=== PATIENT | female | born 1985 | race Caucasian/White ===

== ENCOUNTER 2020-12-28 16:36 | Observation (INO) ==
[2020-12-28] MEDS ORDERED: MAG HYDROX/AL HYDROX/SIMETH 30 ML ORAL.SUSP PO ONE (17:32)
[2020-12-28] MEDS ORDERED: ONDANSETRON 4 MG/2 ML VIAL IV ONE (17:32)
[2020-12-28] MEDS ORDERED: FAMOTIDINE/PF 20 MG/2 ML VIAL IV ONE (17:32)
[2020-12-28] MEDS ORDERED: LACTATED RINGERS 1,000 ML IV ONE (17:33)
[2020-12-28 18:08] LABS: Basophils # (Auto) 0.02 K/mcL (0.00-0.30); Basophils % (Auto) 0.2 % (0.0-2.0); Eosinophils # (Auto) 0.19 K/mcL (0.00-0.70); Eosinophils % (Auto) 1.7 % (0.0-7.0); Hematocrit 42.3 % (34.1-44.9); Hemoglobin 14.9 g/dL (11.2-15.7); Lymphocytes # (Auto) 2.66 K/mcL (1.50-4.80); Lymphocytes % (Auto) 24.3 % (15.5-49.0); Mean Cell Volume 93.2 fL (80.0-100.0); Mean Corpuscular HGB Conc 35.2 g/dL (31.0-36.0); Mean Platelet Volume 9.9 fL (7.4-10.4); Monocytes # (Auto) 0.65 K/mcL (0.10-0.90); Monocytes % (Auto) 5.9 % (1.0-12.0); Neutrophils % (Auto) 67.9 % (38.0-78.0); Platelet Count 283 K/mcL (140-440); RBC 4.54 M/mcL (3.59-5.38); Red Cell Distribution Width 11.8 % (11.5-14.5); WBC 10.9 K/mcL (4.5-11.0)
[2020-12-28 18:30] LABS: ALT/SGPT 64 U/L (<40); AST/SGOT 58 U/L (<32); Albumin 4.7 gm/dL (3.2-5.2); Albumin/Globulin Ratio 1.5 (1.0-2.3); Alkaline Phosphatase 77 U/L (39-117); Bilirubin,Total 0.6 mg/dL (0.1-1.0); Blood Urea Nitrogen 8 mg/dL (6-20); Calcium 9.3 mg/dL (8.6-10.4); Carbon Dioxide 21 mmol/L (22-30); Chloride 101 mmol/L (96-108); Globulin 3.1 gm/dL (2.2-3.7); Glomerular Filtration Rate 83; Glucose 89 mg/dL (70-105)
[2020-12-28] MEDS: LACTATED RINGERS 1,000 ML IV SCH (20:22)
[2020-12-28] MEDS: morphine 2 MG/ML VIAL IV PRN (21:42)
[2020-12-28] MEDS: ONDANSETRON 4 MG/2 ML VIAL IV PRN (21:42)
--- NOTE | 2020-12-28 23:55 | Emergency Department Note ---
Abdominal Pain [facility] General Chief Complaint: Abdominal Pain Stated Complaint: RUQ pain, diarrhea x 3 days Time Seen by Provider: 12/28/20 17:00 Source: patient Mode of arrival: ambulatory History of Present Illness HPI Narrative: Narrative: 35-year-old female presents to the ED with abdominal pain for the past 3 days localized to epigastrium and right upper quadrant. Associated with nonbloody nausea vomiting and mild diarrhea. Admits chills no fevers. Symptoms worsen with eating. She is concerned about her gallbladder because issues run in her family. Denies any cardiorespiratory complaints. Denies any genitourinary symptoms. Related Data Home Medications Medication Instructions Recorded Confirmed lactobacillus combination no.8 3 1 cell PO DAILY 12/28/20 12/28/20 billion cell capsule omeprazole magnesium 20 mg 20 mg PO DAILY 12/28/20 12/28/20 tablet,delayed release (Prilosec OTC) Allergies Allergy/AdvReac Type Severity Reaction Status Date / Time Sulfa (Sulfonamide Allergy Verified 12/28/20 21:57 Antibiotics) Review of Systems ROS ROS Narrative: Narrative:At least 10 systems reviewed and otherwise acutely negative except as in the HPI PFSH Narrative Patient History Narrative: Narrative: Medical/Surgical/Family History All Active Problems Knee sprain (Acute) Gastroenteritis (Acute) UTI (urinary tract infection) (Acute) Hypothyroidism (Acute) GERD (gastroesophageal reflux disease) (Acute) Sinusitis (Acute) Palpitations (Acute) Dehydration (Acute) Abdominal pain, RUQ (Acute) Medical History Gastroenteritis Knee sprain UTI (urinary tract infection) Social History Smoking Status: Current every day smoker Exam Narrative Narrative: Narrative: Constitutional: normally developed, no acute distress . Head: Normocephalic, atraumatic, Eyes: No Icterus, ENT: Moist mucus membranes, Neck: Supple, Cardiac: Normal heart sounds, palpable radial pulses, Pulmonary: Normal respiratory effort. Breath sounds clear, no wheeze, rhonchi, rales, Gastrointestinal: Abdomen soft, non-distended, mildly tender in the epigastrium and right upper quadrant no rebound no guarding negative clinical Rodney's. Musculoskeletal: No gross deformities, well perfused Skin: warm, dry Neuro: Alert and oriented. Course Vital Signs Vital signs: Vital Signs Temperature 37.4 C H 12/28/20 16:37 Pulse Rate 130 H 12/28/20 16:37 Respiratory Rate 18 12/28/20 16:37 Blood Pressure 156/101 12/28/20 16:37 Pulse Oximetry (%) 96 12/28/20 16:37 Temperature 37.1 C 12/28/20 23:29 Pulse Rate 88 12/28/20 23:29 Respiratory Rate 22 12/28/20 23:29 Blood Pressure 97/69 12/28/20 23:29 Pulse Oximetry (%) 94 12/28/20 23:29 MDM MDM Narrative Medical decision making narrative: Narrative: Patient with a couple days of right upper quadrant pain bilious vomiting, slight diarrhea chills and symptoms exacerbated with eating. Concern for hepatobiliary pancreatic disease, gastroenteritis, cholecystitis. Work-up was initiated given symptomatic management IV fluids. Is a bit tachycardic. Exam is mildly tender but certainly not a surgical abdomen Right upper quadrant ultrasound interpreted by direct radiology is unremarkable. CBD 5.7 mm. However anesthesiology tech was concerned about the ultrasound and felt like her gallbladder wall was quite thickened and reports clinically she had a sonographic Rodney sign. CBC shows a borderline leukocytosis 10.9 hemoglobin is stable electrolytes grossly unremarkable, does have mildly elevated transaminases however they have been somewhat similar back in July bilirubin is normal Re-evaluation clinically patient is still tachycardic, with there epigastri c/right upper quadrant pain, still worried about potentially an underlying gallbladder cause given her somewhat unclear diagnostic studies. I did discuss her case with on-call surgeon Dr. Ibrahim, whom has agreed to admit the patient under observation to undergo further monitoring and abdominal examination and MRCP in the morning. Did not feel antibiotics warranted at this time. Patient is very agreeable to this plan, admitted at this time. Lab Data Result diagrams: 12/28/20 17:02 12/28/20 17:02 Labs: Lab Results 12/28/20 12/28/20 Range/Units 17:02 17:02 WBC 10.9 (4.5-11.0) K/mcL RBC 4.54 (3.59-5.38) M/mcL Hgb 14.9 (11.2-15.7) g/dL Hct 42.3 (34.1-44.9) % MCV 93.2 (80.0-100.0) fL MCH 32.8 (26.0-34.0) pg MCHC 35.2 (31.0-36.0) g/dL RDW 11.8 (11.5-14.5) % Plt Count 283 (140-440) K/mcL MPV 9.9 (7.4-10.4) fL Neut % (Auto) 67.9 (38.0-78.0) % Lymph % (Auto) 24.3 (15.5-49.0) % [place] % (Auto) 5.9 (1.0-12.0) % Eos % (Auto) 1.7 (0.0-7.0) % Baso % (Auto) 0.2 (0.0-2.0) % Lymph # (Auto) 2.66 (1.50-4.80) K/mcL [place] # (Auto) 0.65 (0.10-0.90) K/mcL Eos # (Auto) 0.19 (0.00-0.70) K/mcL Baso # (Auto) 0.02 (0.00-0.30) K/mcL Absolute Neutrophils 7.41 (1.80-8.00) K/mcL Sodium 136 (133-145) mmol/L Potassium 3.7 (3.3-5.1) mmol/L Chloride 101 (96-108) mmol/L Carbon Dioxide 21 L (22-30) mmol/L Anion Gap 14.0 (8.0-16.0) BUN 8 (6-20) mg/dL Creatinine 0.9 (0.6-1.1) mg/dL GFR Calculation 83 Glucose 89 (70-105) mg/dL Calcium 9.3 (8.6-10.4) mg/dL Total Bilirubin 0.6 (0.1-1.0) mg/dL AST 58 H (<32) U/L ALT 64 H (<40) U/L Alkaline Phosphatase 77 (39-117) U/L Total Protein 7.8 (5.9-8.4) gm/dL Albumin 4.7 (3.2-5.2) gm/dL Globulin 3.1 (2.2-3.7) gm/dL Albumin/Globulin Ratio 1.5 (1.0-2.3) Lipase 21 (7-60) U/L ED POC Tests ED POC Tests: GABE - SARS Antigen Negative Discharge Plan Patient/Caregiver Discharge Instructions Pt seen by TRANSFER COORDINATOR/PA only: No Clinical Impression: Abdominal pain, RUQ Patient Disposition: Xfer As Outpt/Obs ([facility]) Condition: Good Discharge Date/Time: 12/28/20 21:16
--- NOTE | 2020-12-29 01:28 | Ultrasound Report ---
CLINICAL INFORMATION: RUQ pain COMPARISON: None. FINDINGS: Liver is normal in size with elevated echotexture compatible with fatty change or other diffuse hepatocellular process. No focal hepatic lesion. The gallbladder is contracted. There is mild wall thickening which may be artifact related to gallbladder contraction. Scattered calcification seen in the gallbladder wall. Focal tenderness over the gallbladder. Common bile duct is normal-6 mm. Pancreas grossly normal. No free fluid IMPRESSION: Samantha liver mild fatty change or other diffuse hepatocellular process Equivocal acalculus cholecystitis. Interpreted and Authenticated by: Bhavin Falcon 12/29/20
[2020-12-29] MEDS: ONDANSETRON 4 MG/2 ML VIAL IV PRN ×2 (04:49→22:38)
[2020-12-29] MEDS: morphine 2 MG/ML VIAL IV PRN ×4 (04:49→22:24)
[2020-12-29 06:12] LABS: Basophils # (Auto) 0.01 K/mcL (0.00-0.30); Basophils % (Auto) 0.1 % (0.0-2.0); Eosinophils # (Auto) 0.23 K/mcL (0.00-0.70); Eosinophils % (Auto) 3.3 % (0.0-7.0); Hematocrit 37.4 % (34.1-44.9); Lymphocytes % (Auto) 35.8 % (15.5-49.0); Mean Cell Volume 95.2 fL (80.0-100.0); Mean Corpuscular HGB Conc 34.8 g/dL (31.0-36.0); Mean Platelet Volume 9.8 fL (7.4-10.4); Monocytes # (Auto) 0.51 K/mcL (0.10-0.90); Monocytes % (Auto) 7.3 % (1.0-12.0); Neutrophils % (Auto) 53.5 % (38.0-78.0); Platelet Count 242 K/mcL (140-440); RBC 3.93 M/mcL (3.59-5.38); Red Cell Distribution Width 11.8 % (11.5-14.5)
[2020-12-29 07:01] LABS: ALT/SGPT 54 U/L (<40); AST/SGOT 49 U/L (<32); Albumin 3.8 gm/dL (3.2-5.2); Albumin/Globulin Ratio 1.4 (1.0-2.3); Alkaline Phosphatase 60 U/L (39-117); Bilirubin,Total 0.7 mg/dL (0.1-1.0); Blood Urea Nitrogen 7 mg/dL (6-20); Calcium 8.6 mg/dL (8.6-10.4); Carbon Dioxide 23 mmol/L (22-30); Chloride 103 mmol/L (96-108); Globulin 2.7 gm/dL (2.2-3.7); Glomerular Filtration Rate 96; Glucose 87 mg/dL (70-105)
[2020-12-29] MEDS: LACTATED RINGERS 1,000 ML IV SCH ×2 (08:32→22:23)
--- NOTE | 2020-12-29 09:30 | Magnetic Resonance Report ---
CLINICAL INFORMATION: Right upper quadrant pain. Possible acalculus cholecystitis COMPARISON: Abdominal ultrasound 12/28/2020 TECHNIQUE: MRCP was performed using 3D FRFSE respiratory triggered and single-shot FSE thick slab technique. Axial T2 SSFSE and coronal SSFSE images were obtained through the upper abdomen as well. FINDINGS: Liver is normal in size, configuration and signal without focal lesion. The gallbladder wall is normal thickness and signal: no stones identified. No pericholecystic fluid. Both kidneys, adrenal glands, spleen, pancreas and aorta are normal in size, configuration and signal without focal lesion. The intrahepatic, common hepatic common bile ducts are normal caliber: CBD 5 mm. Pancreas divisum noted. Pancreatic ducts are normal caliber 2 mm. There is no free air, free fluid or adenopathy. IMPRESSION: Pancreatic divisum, a congenital anomaly, incidentally noted. Exam is, otherwise, normal Interpreted and Authenticated by: Bhavin Falcon 12/29/20
--- NOTE | 2020-12-29 09:32 | General Surg History&Physical ---
HPI History of Present Illness Patient information: Note initiated : 12/29/20 at 9:27 am Service Date, if different from initiated Date: [] Patient: Tamika Cerna a 35 y/o F admitted on 12/28/20 for RUQ pain, diarrhea x 3 days. Chief Complaint: [] Chief complaint: Epigastric abdominal pain, diarrhea History of present illness: Ms. Cerna is a 35 year old F who presented to the emergency room last night with epigastric abdominal pain. She reports that over the last several weeks she has had intermittent epigastric abdominal pain, bilateral lower quadrant crampy abdominal pain and diarrhea. She denies any blood in the diarrhea. She denies any association with with food. The epigastric abdominal pain got worse last night and she presented to the emergency room for further evaluation. Given the location she underwent a ultrasound which is read as possible wall thickening however no stones and a common bile duct of 6 mm which is normal for her age. Night radiologist read was unremarkable right upper quadrant ultrasound, however given that the photographic laboratory technician felt that there was a positive sonographic Rodney sign and the patient was tachycardic the emergency room doctor was uncomfortable allowing her to go home therefore she was admitted overnight. At this time she denies fevers chills nausea or vomiting. She does still have intermittent epigastric pain but she is hungry. Review of Systems Review of systems: All systems reviewed, negative other than above PFSH PFSH All Active Problems Knee sprain (Acute) Gastroenteritis (Acute) UTI (urinary tract infection) (Acute) Hypothyroidism (Acute) GERD (gastroesophageal reflux disease) (Acute) Sinusitis (Acute) Palpitations (Acute) Dehydration (Acute) Abdominal pain, RUQ (Acute) Medical History Gastroenteritis Knee sprain UTI (urinary tract infection) MEDS/ALLERGIES Home Medications and Allergies Home Medications Medication Instructions Recorded Confirmed Type lactobacillus combination no.8 3 1 cell PO DAILY 12/28/20 12/28/20 History billion cell capsule omeprazole magnesium 20 mg 20 mg PO DAILY 12/28/20 12/28/20 History tablet,delayed release (Prilosec OTC) Allergies Allergy/AdvReac Type Severity Reaction Status Date / Time Sulfa (Sulfonamide Allergy Verified 12/28/20 21:57 Antibiotics) Physical Examination Vital Signs Vital signs: Temp Pulse Resp BP Pulse Ox 98.0 F 82 18 119/72 94 12/29/20 08:00 12/29/20 08:00 12/29/20 08:00 12/29/20 08:00 12/29/20 08:00 General physical appearance General physical exam: well developed, well nourished and no distress Eyes Eye exam: PERRL and normal ocular movement ENT ENT exam: normal pinna, normal nares, normal mucosa, no hearing loss and no severino estion Head Head exam IM: Present atraumatic and normocephalic Neck Neck exam: no masses, no bruits, trachea midline, no lymphadenopathy and no venous distension Cardiovascular Cardiovascular exam IM: Present normal rate and rhythm Respiratory Respiratory exam: normal expansion, normal respiratory effort, clear to percussion and clear to auscultation Abdomen Abdomen: Present soft, non tender and bowel sounds Hernia: Present none Genitourinary Genitourinary (Female): Present normal external genitalia Rectum Rectum: Present normal sphincter tone, no hemorrhoids, no tenderness, no masses and no bleeding Integumentary Integumentary: Present no rash, no growths and no abnormal pigmentation Neurologic Neurologic: Present normal coordination and normal sensation Musculoskeletal Musculoskeletal: Present normal gait and normal posture Psychiatric Psychiatric: Present oriented to time, oriented to person, oriented to place, speech is normal and memory intact Results Labs Result diagrams: 12/29/20 05:24 12/29/20 05:24 Labs: Abnormal lab results 12/28/20 12/29/20 Range/Units 17:02 05:24 Carbon Dioxide 21 L (22-30) mmol/L AST 58 H 49 H (<32) U/L ALT 64 H 54 H (<40) U/L Diabetes panel 12/28/20 12/29/20 Range/Units 17:02 05:24 Sodium 136 135 (133-145) mmol/L Potassium 3.7 3.9 (3.3-5.1) mmol/L Chloride 101 103 (96-108) mmol/L Carbon Dioxide 21 L 23 (22-30) mmol/L BUN 8 7 (6-20) mg/dL Creatinine 0.9 0.8 (0.6-1.1) mg/dL Glucose 89 87 (70-105) mg/dL Calcium 9.3 8.6 (8.6-10.4) mg/dL AST 58 H 49 H (<32) U/L ALT 64 H 54 H (<40) U/L Alkaline Phosphatase 77 60 (39-117) U/L Total Protein 7.8 6.5 (5.9-8.4) gm/dL Albumin 4.7 3.8 (3.2-5.2) gm/dL Calcium panel 12/28/20 12/29/20 Range/Units 17:02 05:24 Calcium 9.3 8.6 (8.6-10.4) mg/dL Albumin 4.7 3.8 (3.2-5.2) gm/dL Pituitary panel 12/28/20 12/29/20 Range/Units 17:02 05:24 Sodium 136 135 (133-145) mmol/L Potassium 3.7 3.9 (3.3-5.1) mmol/L Chloride 101 103 (96-108) mmol/L Carbon Dioxide 21 L 23 (22-30) mmol/L BUN 8 7 (6-20) mg/dL Creatinine 0.9 0.8 (0.6-1.1) mg/dL Glucose 89 87 (70-105) mg/dL Calcium 9.3 8.6 (8.6-10.4) mg/dL Adrenal panel 12/28/20 12/29/20 Range/Units 17:02 05:24 Sodium 136 135 (133-145) mmol/L Potassium 3.7 3.9 (3.3-5.1) mmol/L Chloride 101 103 (96-108) mmol/L Carbon Dioxide 21 L 23 (22-30) mmol/L BUN 8 7 (6-20) mg/dL Creatinine 0.9 0.8 (0.6-1.1) mg/dL Glucose 89 87 (70-105) mg/dL Calcium 9.3 8.6 (8.6-10.4) mg/dL Total Bilirubin 0.6 0.7 (0.1-1.0) mg/dL AST 58 H 49 H (<32) U/L ALT 64 H 54 H (<40) U/L Alkaline Phosphatase 77 60 (39-117) U/L Total Protein 7.8 6.5 (5.9-8.4) gm/dL Albumin 4.7 3.8 (3.2-5.2) gm/dL All other labs normal. A/P Assessment and plan (1) Gastroenteritis: Status: Acute (2) Abdominal pain, RUQ: Status: Acute Narrative A/P Narrative: This is a pleasant 35-year-old female who presents with 2-week history of intermittent crampy abdominal pain diarrhea and epigastric abdominal pain. Ultrasound is read as questionable for a calculus cholecystitis which is not a normal condition in a otherwise healthy 35-year-old female. MRCP of the abdomen was ordered for this morning, further diagnosis will be made based on MRCP results. Continue n.p.o. until MRCP results. Time Spent With Patient Time: Total time spent is greater than 50% in coordination of care (as documented) at patient's floor/unit and/or counseling patient:
[2020-12-29] MEDS ORDERED: LORazepam 2 MG/ML VIAL IV PRN (12:51)
--- NOTE | 2020-12-29 13:12 | Internal Medicine Consult Note ---
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 She awakens in the morning with frequent nausea, vomiting bilious emesis and dry heaves. She has intermittent epsiodes of crampy diarrhea up to 7 loose BMs daily with nocturnal stooling and fecal incontinence. Symptoms are affecting her school performance. She denies melena, but has bright red blood per rectum and is concerned bc her half brother had colon cancer in his late 20s. In between episodes, she has normal stool. She is never constipated. She denies marijuana use but occasionally use NSAIDs. Weight has been stable. She may have been on antibiotics two months ago. She has a history of hypothyroidism but is not currently on supplementation. She has not traveled anywhere or drank any untreated water but has 2 cats and 2 snakes. MRCP showed pancreas divisum but lipase normal. Transaminases modestly elevated. No evidence of cholestasis. CBC normal. PMH: Hypothyroid. PSH: C section x 2, appy, right ankle fx, bilateral inguinal hernia repair in infancy. Meds: non. Family history: 1/2 brother with colon cancer. maternal aunt has endometriosis. SH: Smokes 5 cigarettes daily. used to drink heavily but cut back to 4 drinks a week at onset of symptoms. Lives with 2 sons, age 12 and 7. cc:: CC: Jeffery Ibrahim MD Review of Systems All systems: reviewed and no additional remarkable complaints except as stated Review of systems: Frequent tension type headache daily. PFSH PFSH All Active Problems (Updated 12/29/20 @ 13:10 by JANIS Haro) Diarrhea (Acute) Epigastric pain (Acute) Knee sprain (Acute) Gastroenteritis (Acute) UTI (urinary tract infection) (Acute) Hypothyroidism (Acute) GERD (gastroesophageal reflux disease) (Acute) Sinusitis (Acute) Palpitations (Acute) Dehydration (Acute) Abdominal pain, RUQ (Acute) Medical History Gastroenteritis Knee sprain UTI (urinary tract infection) MEDS/ALLERGIES Home Medications and Allergies Home Medications Medication Instructions Recorded Confirmed Type lactobacillus combination no.8 3 1 cell PO DAILY 12/28/20 12/28/20 History billion cell capsule omeprazole magnesium 20 mg 20 mg PO DAILY 12/28/20 12/28/20 History tablet,delayed release (Prilosec OTC) Allergies Allergy/AdvReac Type Severity Reaction Status Date / Time Sulfa (Sulfonamide Allergy Verified 12/28/20 21:57 Antibiotics) EXAM Constitutional Vitals: Temp Pulse Resp BP Pulse Ox 97.9 F 86 18 117/82 93 12/29/20 12:00 12/29/20 12:00 12/29/20 12:00 12/29/20 12:00 12/29/20 12:00 General appearance: cooperative and obese Head Head exam: Present atraumatic and normal inspection Eye Eye exam: Present normal appearance; Absent scleral icterus ENT ENT exam: Present mucous membranes moist and normal exam Respiratory Respiratory exam: Present normal respiratory exam and CTAB; Absent accessory muscle use GI/Abdominal GI/Abdominal exam: Present normal bowel sounds and soft; Absent hernia, mass or tenderness Rectal Rectal exam: Present deferred Extremities Exam Extremities exam: Present normal inspection and Foot pink and warm; Absent pedal edema or Dung's sign Expanded Lower Extremity Exam Gait: Present not tested/not observed Neurological Exam Neurological exam: Present alert and oriented X3 Psychiatric Psychiatric exam: Present anxious and normal affect Skin Skin exam: Present dry and warm DATA Data Completed and Pending Labs: Labs from last 24 hours 12/29/20 12/29/20 12/28/20 05:24 05:24 17:02 WBC 7.0 RBC 3.93 Hgb 13.0 Hct 37.4 MCV 95.2 MCH 33.1 MCHC 34.8 RDW 11.8 Plt Count 242 MPV 9.8 Neut % (Auto) 53.5 Lymph % (Auto) 35.8 [place] % (Auto) 7.3 Eos % (Auto) 3.3 Baso % (Auto) 0.1 Lymph # (Auto) 2.50 [place] # (Auto) 0.51 Eos # (Auto) 0.23 Baso # (Auto) 0.01 Absolute Neutrophils 3.73 Sodium 135 136 Potassium 3.9 3.7 Chloride 103 101 Carbon Dioxide 23 21 L Anion Gap 9.0 14.0 BUN 7 8 Creatinine 0.8 0.9 GFR Calculation 96 83 Glucose 87 89 Calcium 8.6 9.3 Total Bilirubin 0.7 0.6 AST 49 H 58 H ALT 54 H 64 H Alkaline Phosphatase 60 77 Total Protein 6.5 7.8 Albumin 3.8 4.7 Globulin 2.7 3.1 Albumin/Globulin Ratio 1.4 1.5 Lipase 21 12/28/20 17:02 WBC 10.9 RBC 4.54 Hgb 14.9 Hct 42.3 MCV 93.2 MCH 32.8 MCHC 35.2 RDW 11.8 Plt Count 283 MPV 9.9 Neut % (Auto) 67.9 Lymph % (Auto) 24.3 [place] % (Auto) 5.9 Eos % (Auto) 1.7 Baso % (Auto) 0.2 Lymph # (Auto) 2.66 [place] # (Auto) 0.65 Eos # (Auto) 0.19 Baso # (Auto) 0.02 Absolute Neutrophils 7.41 Sodium Potassium Chloride Carbon Dioxide Anion Gap BUN Creatinine GFR Calculation Glucose Calcium Total Bilirubin AST ALT Alkaline Phosphatase Total Protein Albumin Globulin Albumin/Globulin Ratio Lipase A/P Assessment and plan (1) Epigastric pain: Status: Acute (2) Diarrhea: Status: Acute Narrative A/P Narrative: I reviewed her case with Dr. Antonio. We will arrange for EGD to further evaluate her epigastric pain with vomiting and diarrhea, checking for gastric outlet obstruction, PUD, H. pylori, UGI Crohn's, etc. We will obtain small bowel biopsies to check for malabsorption. We will then prep her for colonoscopy with colyte and arrange for colonoscopy with random colon bx tomorrow, checking for microscopic colitis or Crohn's in light of her history of smoking. Will check stool studies for infectious causes of diarrhea including c difficile and toxoplasmosis serologies in light of her house cats. Will check thyroid studies, celiac serology and CRP. Ativan prescribed at request at nurse for anxiety. Further recommendations forthcoming following the above studies. Time Spent With Patient Time: Total time spent is greater than 50% in coordination of care (as documented) at patient's floor/unit and/or counseling patient: Total time spent with greater than 50% in coordination of care (as documented) at patient's floor/unit and/or counseling patient:: Greater than 35 minutes
[2020-12-29] MEDS ORDERED: PEG 3350/NA SULF,BICARB,CL/KCL 4,000 ML ORAL.SOL PO ONE (13:17)
[2020-12-29] MEDS ORDERED: ACETAMINOPHEN 1,000 MG/100 ML BAG IV ONE (15:34)
[2020-12-29] MEDS ORDERED: KETAMINE 50 MG/ML ML IV PRN (16:57)
[2020-12-29] MEDS ORDERED: MIDAZOLAM 2 MG/2 ML VIAL IV SCH (17:00)
[2020-12-29] MEDS ORDERED: PROPOFOL 200 MG/20 ML VIAL IV SCH (17:00)
[2020-12-29] MEDS ORDERED: MIDAZOLAM 2 MG/2 ML VIAL ONE (17:14)
[2020-12-29] MEDS ORDERED: PROPOFOL 200 MG/20 ML VIAL IV ONE (17:14)
[2020-12-30] MEDS ORDERED: PROPOFOL 200 MG/20 ML VIAL IV SCH (08:45)
[2020-12-30] MEDS ORDERED: MIDAZOLAM 2 MG/2 ML VIAL IV SCH (08:45)
[2020-12-30] MEDS ORDERED: KETAMINE 50 MG/ML ML IV PRN (08:45)
[2020-12-30] MEDS: ONDANSETRON 4 MG/2 ML VIAL IV PRN (08:55)
--- NOTE | 2020-12-30 09:23 | EGD Procedure Note ---
EGD Procedure Notes Procedure Information Patient information: Note initiated : 12/30/20 at 9:21 am Service Date: 12/29/20 Patient: Tamika Cerna 35 y/o F admitted on 12/28/20 for RUQ pain, diarrhea x 3 days. Pre-op diagnosis general: Nausea, vomiting, diarrhea. Dysphagia. Post-Op Diagnosis general: Schatkzi's ring. Query celiac, H. pylori, eosinophilia. Procedure: EGD with Guided Dilation Procedure Narrative: The procedure, alternatives and risks were discussed with the patient and the patient's questions were answered. With endoscopist-administered intravenous sedation, the [employer] video endoscope was introduced into the esophagus. The esophagus, stomach, and duodenum were examined sequentially. There is no esophagitis. Mid esophageal biopsies were taken to check for eosinophilia. At the esophagogastric junction, there was a Schatzki's ring narrowing the lumen significantly. The gastric mucosa, antrum, pyloric ring, and duodenum appeared normal. Antral biopsy was taken for IDALIA test. Small bowel biopsies were taken to check for malabsorption. guidewire was inserted into the scope. The scope was then withdrawn, leaving the guidewire in place. The esoph tosha was dilated with an Italian bougie 51 Romanian. Assessment: Schatkzi's ring. Query celiac, H. pylori, eosinophilia.
[2020-12-30 09:37] LABS: Free T4 (Free Thyroxine) 0.95 ng/dL (0.93-1.70); Thyroid Stimulating Hormone 12.35 uIU/mL (0.27-5.01)
[2020-12-30] MEDS: LACTATED RINGERS 1,000 ML IV SCH ×2 (10:27→10:45)
[2020-12-30] MEDS ORDERED: MIDAZOLAM 2 MG/2 ML VIAL ONE (15:37)
[2020-12-30] MEDS ORDERED: PROPOFOL 200 MG/20 ML VIAL IV ONE (15:37)
--- NOTE | 2020-12-31 10:11 | Discharge Summary ---
Discharge Provider Provider Patient information: Note initiated : 12/31/20 at 10:10 am Service Date, if different from initiated Date: [] Patient: Tamika Cerna 35 y/o F admitted on 12/28/20 for RUQ pain, diarrhea x 3 days. Chief Complaint: [] Date of admission: 12/28/20 21:09 Discharge date: 12/30/20 Primary care physician: Jolanta Hendrickson Consults: 12/28/20 Consult to Physician [CONS] Stat Comment: Consulting Provider: Jeffery Ibrahim Reason For Exam: Physician to Consult COURSE Hospital Course Hospital course: Patient is admitted for rule out cholecystitis, underwent MRCP which was negative for cholelithiasis or cholecystitis. GI consult what is obtained she underwent an EGD and a colonoscopy. She will need to follow-up with GI for results. Discharge diagnosis: Diarrhea, epigastric abdominal pain. Time Spent with Patient Time attestation: Total time spent providing and/or coordinating discharge services: Physical Examination Vital Signs Vital signs: Temp Pulse Resp BP Pulse Ox 97.6 F 75 18 133/90 93 12/30/20 17:45 12/30/20 17:45 12/30/20 17:45 12/30/20 17:45 12/30/20 17:45 Discharge Plan Patient/Caregiver Discharge Instructions Activity: increase activity as tolerated Diet: Regular Diet Instructions: Hypothyroidism (DC), Esophageal Stricture (DC), Colonoscopy (DC), Upper Endoscopy (DC), Esophageal Dilation (DC) Activity Restrictions/Additional Instructions: Follow-up with GI in 1 to 2 weeks for biopsy results. Call your PCP for follow up regarding your thyroid labs Diet, activity as tolerated. Call your physician for sustained fever greater than 100.5, bleeding, increase in pain not relieved with rest/medication, any questions/concerns. This discharge packet is provided to you to help keep you informed about your care. We want to ensure you get everything you need when you go home. You will also be receiving a call from us in a few days to follow up with you and see how you are doing since your discharge. This gives us a chance to listen to any concerns you maybe experiencing since you were discharged or any additional needs you may have, as well as providing us feedback on your care experience. We strive to always provide excellent care and thank you for your feedback and for choosing [facility]. Prescriptions: Continued omeprazole magnesium [Prilosec OTC] 20 mg Tablet,Delayed Release (Dr/Ec) 20 mg PO DAILY 0RF lactobacillus combination no.8 3 billion cell Capsule 1 cell PO DAILY 0RF Follow Up Plan Follow up with: Martha Puckett ARNP [Nurse Practitioner] - 01/05/21 12:00 pm () Jolanta Henrdickson ARNP [Primary Care Provider] - 12/31/20 11:45 am Patient Disposition: Home, Self-Care Prognosis: Good Discharge Orders: Discharge Order (Routine); Ordered 12/30/20 Ordered By: Jeffery Ibrahim Pending Pending Pending: Diet Regular Diet Start Ana Dec 30 163 Shift Summary 12/29/20 16:01 Shift Summary by Janeth Silvestre Primary Diagnosis: Rt. Upper quadrant pain Registration Status: OBS Day of Hospitalization: 12/28 Date of Surgery (if applicable): MRCP 12/29, EGD 12/29, Colonoscopy 12/30 Pertinent Medical Dx/Issues (may be more than one): 6 month history of epigastric pain, diarrhea, abdominal pain. She awakens in the morning with frequent nausea, vomiting bilious emesis and dry heaves. She has intermittent epsiodes of crampy diarrhea up to 7 loose BMs daily with nocturnal stooling and fecal incontinence. Symptoms are affecting her school performance. She denies melena, but has bright red blood per rectum and is concerned bc her half brother had colon cancer in his late 20s. In between episodes, she has normal stool. She is never constipated. She denies marijuana use but occasionally use NSAIDs. Weight has been stable. She may have been on antibiotics two months ago. She has a history of hypothyroidism but is not currently on supplementation. Hx of Hypothyroid. PSH: C section x 2, appy, right ankle fx, bilateral inguinal hernia repair in infancy. Interventions (O2, wounds, diuresis, etc): Vital Signs with Trends: VSS on RA Meds (abo, pain, BP, etc): Morphine 2mg IV PRN x2, Ofirmev 1000mg IV x1 Lines/Tubes: IV to the : L. Wrist Oxygen needs (home use vs. current use): VSS on RA Lab/Rad results: Date of last BM: 12/29/20, stool sample needed. Elimination: Voids per bathroom Trends (is the patient improving?): Activity: Up Ad Ariana Expected date of discharge: TBD Discharge Plan (needs, disposition, etc):TBD Pt will be getting an EGD today. After EGD pt will begin bowel prep and will be allowed to have clear liquids up until 4hrs prior to colonoscopy. Initialized on 12/29/20 16:01 - END OF NOTE
--- NOTE | 2020-12-31 13:31 | Surgical Pathology Report ---
Histology Microscopic Diagnosis Specimen A- ESOPHAGUS, BIOPSY: --- SQUAMOUS MUCOSA WITH NO DIAGNOSTIC ALTERATIONS. Clinical History Nausea/vomiting; diarrhea; dysphagia. Procedural Impression Schatzki's; (?) celiac, H. pylori and eosinophilia. Gross Description Received in formalin labeled esophageal biopsy, are four fragments of huynh jimenez-huynh tissue 0.2 to 0.4 cm. Totally submitted in one cassette. Microscopic Diagnosis Specimen B- DUODENUM, BIOPSY: --- DUODENAL MUCOSA WITH INTACT VILLOUS ARCHITECTURE AND NO INCREASE IN INTRAEPITHELIAL LYMPHOCYTES. --- POSITIVE FOR FOCAL GASTRIC METAPLASIA (AB/PAS STAIN WITH ADEQUATE TECHNICAL CONTROL). (RLF) Gross Description Received in formalin labeled duodenal biopsy, are five fragments of pink-huynh tissue 0.2 to 0.6 cm. Totally submitted in one cassette. (KGW:laurie) Electronically Signed Faye East MD, FCAP Electronically Signed 12/31/2020 13:30
--- NOTE | 2020-12-31 14:26 | Colonoscopy Procedure Note ---
Colonoscopy Procedure Notes Procedure Information Patient information: Note initiated : 12/31/20 at 2:25 pm Service Date: 12/30/20 Patient: Tamika Cerna 35 y/o F admitted on 12/28/20 for RUQ pain, diarrhea x 3 days. Pre-op diagnosis general: Diarrhea. Post-op diagnosis general: Diarrhea. Query microscopic colitis. Procedure: Colonoscopy with Bx Procedure narrative: The procedure, alternatives and risks were discussed with the patient and the patient's questions were answered. With endoscopist-administered IV sedation, the Olympus colonoscope was introduced into the rectum and advanced to the cecum. Ileocecal valve was identified, and intubated. Several cm of the terminal ileum were examined and were normal. Random colon biopsies were taken throughout the colon to assess for microscopic colitis. The colon otherwise appeared normal. Assessment: Diarrhea. Query microscopic colitis.
--- NOTE | 2021-01-03 10:20 | Surgical Pathology Report ---
Histology Microscopic Diagnosis Specimen A- COLON, RANDOM, BIOPSIES: --- COLONIC MUCOSA WITH NO DIAGNOSTIC ALTERATIONS. --- NO ACTIVE OR MICROSCOPIC COLITIS IDENTIFIED. (RLF) Clinical History Diarrhea. Procedural Impression (?) Microscopic colitis. Gross Description Received in formalin labeled random colon biopsy, are nine fragments of huynh tissue 0.2 up to 1.1 cm. Totally submitted in one cassette. (KGW:laurie) Electronically Signed Faye East MD, FCAP Electronically Signed 01/03/2021 10:18
[2021-01-04 09:26] LABS: Toxoplasma IgG Antibody < 7.20 IU/mL; Toxoplasma IgM Antibody < 8.00 AU/mL
== END 2020-12-30 17:35 | disposition home or self-care (01) ==
LOC: ED 16:36 → MEDSUR 16:36
PROVIDERS: ADMIT Surgery; ATTEND Surgery